=== PATIENT | male | born 1980 | race Caucasian/White ===

== ENCOUNTER 2021-08-06 05:14 | Emergency (ER) | payer OTHER ==
[~2021-08-06] VITALS: Ht 193 cm; Wt 90.1 kg
[2021-08-06 05:15] VITALS: BP 140/92
[2021-08-06] MEDS ORDERED: normal saline 1000ML IV soln IVB ONE (05:25)
[2021-08-06] MEDS ORDERED: diphenhydrAMINE 50 mg/ml inj IV ONE (05:25)
[2021-08-06] MEDS ORDERED: diphenhydrAMINE 25mg capsule PO STA (05:52)
== END 2021-08-06 06:00 | disposition home or self-care (01) ==
LOC: ER 05:15
DX: T78.40XA Allergy, unspecified, initial encounter (principal); R06.02 Shortness of breath; Z60.2 Problems related to living alone; Z56.0 Unemployment, unspecified; Z59.0 Homelessness; X58.XXXA Exposure to other specified factors, initial encounter
CPT/HCPCS: 99282; Q0163